=== PATIENT | female | born 1995 | race Caucasian/White ===

== ENCOUNTER 2017-07-06 17:31 | Emergency (ER) | payer BC ==
--- NOTE | 2017-07-06 17:54 | CPEKG ---
Heart Rate: 80 RR Interval: 750 P-R Interval: 160 QRSD Interval: 110 QT Interval: 332 QTC Interval: 383 P [place]: 52 QRS [place]: 57 T Wave [place]: 21 EKG Severity - ABNORMAL ECG - EKG Impression: SINUS ARRHYTHMIA, RATE 66-96 EKG Impression: PROBABLE LEFT ATRIAL ABNORMALITY EKG Impression: INCOMPLETE RIGHT BUNDLE BRANCH BLOCK Electronically Signed By: Jose Nettles 06-Jul-2017 18:00:42
[2017-07-06] MEDS ORDERED: NS 1,000 ML IV ONE (17:56)
--- NOTE | 2017-07-06 18:00 | EDPHY ---
H & P Stated Complaint: SYNCOPE THIS AM FEELING BETTER NOW Time Seen by Provider: 07/06/17 17:50 HPI/ROS: CHIEF COMPLAINT: Syncope HISTORY OF PRESENT ILLNESS: The patient is a 22-year-old female who had a syncopal episode this morning about 10 hr ago. She states that she has had nausea every morning since she was a year ago. This was terminated in an but she has continued to have morning nausea episodes ever since. She states that it usually wakes her up. This morning she went to the bathroom and began to retch but did not vomit. She then woke up on the floor. She denies chest pain or palpitations or shortness of breath. No recent fevers or illness. She denies trauma. No history of seizures. She reports that she is now asymptomatic and has felt normal all day. Her mom encouraged her to come get checked out because her and has a history of heart valve disease. REVIEW OF SYSTEMS: Constitutional: denies: chills, fever, recent illness, recent injury EENTM: denies: blurred vision, double vision, nose congestion Respiratory: denies: cough, shortness of breath Cardiac: See HPI denies: chest pain, irregular heart rate, palpitations Gastrointestinal/Abdominal: See HPI denies: abdominal pain, diarrhea, blood streaked stools Genitourinary: denies: dysuria, frequency, hematuria, pain Musculoskeletal: denies: joint pain, muscle pain Skin: denies: lesions, rash, jaundice, bruising Neurological: denies: headache, numbness, paresthesia, tingling, dizziness, weakness Hematologic/Lymphatic: denies: blood clots, easy bleeding, easy bruising Immunologic/allergic: denies: HIV/AIDS, transplant EXAM: GENERAL: Well-appearing, well-nourished and in no acute distress. HEAD: Atraumatic, normocephalic. EYES: Pupils equal round and reactive to light, extraocular movements intact, sclera anicteric, conjunctiva are normal. ENT: TMs normal, nares patent, oropharynx clear without exudates. Moist mucous membranes. NECK: Normal range of motion, supple without lymphadenopathy or JVD. LUNGS: Breath sounds clear to auscultation bilaterally and equal. No wheezes rales or rhonchi. HEART: Regular rate and rhythm without murmurs, rubs or gallops. ABDOMEN: Soft, nontender, normoactive bowel sounds. No guarding, no rebound. No masses appreciated. BACK: No CVA tenderness, no spinal tenderness, step-offs or deformities EXTREMITIES: Normal range of motion, no pitting or edema. No clubbing or cyanosis. NEUROLOGICAL: Cranial nerves II through XII grossly intact. Normal speech, normal gait. 5/5 strength, normal movement in all extremities, normal sensation PSYCH: Normal mood, normal affect. SKIN: Warm, dry, normal turgor, no visible rashes or lesions. Source: Patient Exam Limitations: No limitations - Personal History LMP (Females 10-55): 22-28 Days Ago Current Tetanus Diphtheria and Acellular Pertussis (TDAP): Yes - Medical/Surgical History Hx Asthma: No Hx Chronic Respiratory Disease: No Hx Diabetes: No Hx Cardiac Disease: No Hx Renal Disease: No Hx Cirrhosis: No Hx Alcoholism: No Hx HIV/AIDS: No Hx Splenectomy or Spleen Trauma: No Other PMH: DENIES - Social History Smoking Status: Current some day smoker Alcohol Use: Sober Drug Use: None Constitutional: Initial Vital Signs Temperature (C) 37 C 07/06/17 17:34 Heart Rate 88 07/06/17 17:34 Respiratory Rate 17 07/06/17 17:34 Blood Pressure 114/69 07/06/17 17:34 O2 Sat (%) 96 07/06/17 17:34 O2 Delivery Mode Room Air Allergies/Adverse Reactions: No Known Allergies Allergy (Unverified 07/06/17 17:33) Home Medications: Medication Instructions Recorded Ondansetron Odt [Zofran Odt 4 mg 4 mg PO Q4 PRN #20 tab 07/06/17 (RX)] Lashanda Control 07/06/17 Medical Decision Making - Diagnostics EKG Interpretation: An EKG obtained and was read and documented in trace view. Please see trace view for full reading and report. Sinus rhythm, no acute ischemic changes Imaging: Discussed imaging studies w/ outbound call center representative Radiologist ED Course/Re-evaluation: The patient has a normal EKG and no murmur consistent with heart valve disease. I did suggest she follow up with hand plate stacker for echo. 6:45 p.m. we discussed the patient's positive test. She states that her last menses was approximately 1 month ago and was normal. She has been sexually active. Will obtain a quant and ultrasound to rule out ovarian hemorrhage or ectopic. She has no abdominal pain. 8:10 p.m. we discussed the ultrasound results. Patient is currently asymptomatic. I will prescribe her Zofran for her morning nausea as she requests. I encouraged her to take prenatals and will refer her to OBGYN. She is happy with this plan and declines further workup or testing . Differential Diagnosis: Partial list of the Differential diagnosis considered include but were not limited to; dehydration, anemia, , arrhythmia, vasovagal and although unlikely based on the history and physical exam, I also considered hemorrhage, infection, acute coronary disease. I discussed these differential diagnoses and the plan with the patient as well as the usual and expected course. The patient understands that the diagnosis is provisional and that in medicine we are not always correct and that further workup is often warranted. Usual and customary warnings were given. All of the patient's questions were answered. The patient was instructed to return to the emergency department should the symptoms at all worsen or return, otherwise to followup with the physician as we discussed. - Data Points Laboratory Results: Laboratory Results 07/06/17 18:00 07/06/17 18:00 Medications Given: Discontinued Medications Sodium Chloride (Ns) 1,000 mls @ 0 mls/hr IV EDNOW ONE; Wide Open PRN Reason: Protocol Stop: 07/06/17 17:57 Last Admin: 07/06/17 18:05 Dose: 1,000 mls Ondansetron HCl (Zofran Odt 4 Mg Prepack#2) 1 btl TAKEHOME EDNOW ONE Stop: 07/06/17 20:15 Last Admin: 07/06/17 20:26 Dose: 1 btl Point of Care Test Results: Chemistry 07/06/17 18:14 POC Troponin I 0.00 ng/mL ng/mL (0.00-0.08) Departure - Departure Disposition: Home, Routine, Self-Care Clinical Impression: Qualifiers: Weeks of gestation: less than 8 weeks Qualified Code(s): Z3A.01 - Less than 8 weeks gestation of Syncope Qualifiers: Syncope type: vasovagal syncope Qualified Code(s): R55 - Syncope and collapse Condition: Good Instructions: Ondansetron (By mouth), (ED), Syncope (ED) Additional Instructions: On today's ultrasound you are 6 weeks 3 days . Referrals: NONE *PRIMARY CARE P,. [Primary Care Provider] - As per Instructions Donna Hameed MD [Medical Doctor] - As per Instructions Prescriptions: Ondansetron Odt [Zofran Odt 4 mg (RX)] 4 mg PO Q4 PRN #20 tab PRN Reason: Nausea & Vomiting
[2017-07-06 18:21] LABS: PLATELET COUNT 344 10^3/uL (150-400)
[2017-07-06 18:27] LABS: INR 1.01 (0.83-1.16); PROTIME(PATIENT) 13.5 SEC (12.0-15.0)
[2017-07-06] MEDS ORDERED: ONDANSETRON 4MG PREPACK#2 BTL TAKEHOME ONE (20:14)
[2017-07-06 20:20] VITALS: BP 112/60
== END 2017-07-06 20:33 | disposition home or self-care (01) ==
DX: O99.89 Other specified diseases and conditions complicating pregnancy, childbirth and the puerperium (principal); R55 Syncope and collapse; F17.200 Nicotine dependence, unspecified, uncomplicated; E86.9 Volume depletion, unspecified; Z3A.01 Less than 8 weeks gestation of pregnancy
CPT/HCPCS: 84484-PO